=== PATIENT | male | born 1935 | race Caucasian/White ===

== ENCOUNTER → 2023-06-23 10:16 | Outpatient (REF) | payer OTHER, SELFPAY | LOC: RCS 10:16 | PROVIDERS: ATTENDING PHYSICIAN Internal Medicine Cardiovascular Disease; FAMILY PHYSICIAN Family Medicine | DX: I47.29 Other ventricular tachycardia (principal); R00.1 Bradycardia, unspecified | CPT/HCPCS: 93225; 93226 ==

== ENCOUNTER → 2024-07-15 08:16 | Outpatient (REF) | payer OTHER, SELFPAY | LOC: RAD 08:16 | PROVIDERS: ATTENDING PHYSICIAN Family Medicine | DX: M75.51 Bursitis of right shoulder (principal) | CPT/HCPCS: 73030 ==

== ENCOUNTER 2024-12-29 05:58 | Day surgery (SDC) | payer OTHER, SELFPAY ==
[2024-12-29] VITALS (20 sets, daily range): BP systolic 112–156; BP diastolic 61–94; BMI 31.3
--- NOTE | 2024-12-29 11:35 | W.PN.UPDATE ---
Update Note
Progress Note Update
Pt seen post DC PPM implant. Left ACW w/aquacel CDI, no ht/bleeding. Post CXR w/stable lead position, no pneumothorax. Post tele SR w/bursts ATach, intermittent A pacing. Activity limitations reviewed with pt and family members at bedside. Will
resume propranolol er 60mg daily and continue other meds as before. Incision check at [facility] in 1 week and follow with Dr. Thompson thereafter. Home later today if device site/tele remain stable.
--- NOTE | 2024-12-29 12:33 | PTCARENOTE ---
Isaias Washington, medtronic rep, at pt bedside speaking to pt and pt's .
[2024-12-29] MEDS: ANCEF 5 IV (13:53)
--- NOTE | 2024-12-29 15:27 | ITS.CL.PACE ---
Bottom Turning Lathe Turner - Pacemaker Implant
Pacemaker Implant
Procedure Report:
Date of Procedure: December 29, 2024.
Procedure: Pacemaker Implantation. Left upper extremity venogram.
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
Performing physician: Brayan Thompson MD, [facility].
Implants:
Pulse Generator: Medtronic; Model# W1DR01; Serial# [id number].
RA Lead: Med[employer]onic; Model# 5076-45cm; Serial# [id number].
RV Lead: Med[employer]onic; Model# 3830-69cm; Serial# [id number].
Technique: A time out was performed. A 10 mL upper extremity venogram demonstrated patent left axillary, cephalic, and subclavian veins. The procedure site was identified. The patient was anesthetized by the anesthesia service. Preoperative
cefazolin was administered. The patient was prepped and draped in the usual fashion. Local anesthetic was applied to the left prepectoral subcutaneous tissue. A 3 inch incision was made along the left deltopectoral groove. Dissection was carried to
the fascia. The left cephalic vein was easily isolated and proximal and distal control with 2-0 Vicryl suture. Using a micropuncture needle to access the cephalic vein under direct visualization a wire was advanced into the central circulation. A 7
Fr introducer was placed to allow two 0.35 J wires to be advanced. The leads were introduced with hemostatic peel away introducer sheaths. The RV lead was placed using utilizing the [employer] His delivery catheter ([id number]) that was advanced to the
left bundle area as confirmed by fluoroscopy in the LUXEMBOURGER and MILLER projections. The lead tip was advanced. PVC morphology was reviewed. When a satisfactory location was identified (W pattern observed) the lead was screwed into position with serial
turns. Septal engagement was confirmed with gentle torque applied to the guide sheath. After each series of turns (2-3) unipolar sensed morphology and impedance, and paced morphology of V1 was analyzed. The lead was further advanced until
satisfactory morphology and electrical characteristics were confirmed. The RV lead was placed in the second location evaluated. The long guiding sheath was cut and removed from the RV without change in lead position, impedance, sensing, or capture.
The ventricular lead was secured to the pectoralis muscle and fascia with two 0-silk sutures. The atrial lead was placed in the right atrial appendage. 8 volt pacing from each lead did not capture the diaphragm. The atrial leads was secured to the
pectoralis muscle and fascia. A subcutaneous pocket was created with Bovie cautery. Hemostasis was excellent. The leads were appropriately attached to the device. The pocket was irrigated with antibiotic solution. The device and leads were placed in
the pocket. The incision was closed in three layers with absorbable suture. Steri-strips and a silver impregnated dressing were placed. Estimated blood loss was 25 ml. There were no complications. Fluoroscopy time 3.8 minutes and DAP 2.63 GyCM2.
The device was then interrogated after skin closure.
Lead Analysis:
RA lead: P: 1.6 mV; Threshold: 1.5 V @ 0.4 ms; Impedance: 513 ohms.
RV lead (bipolar): R: 17.4 mV; Threshold: 0.5 V @ 0.4 ms; Impedance: 665 ohms.
RV lead (unipolar): R: 20 mV; Threshold: 0.5 V @ 0.4 ms; Impedance: 456 ohms.
Paced QRS characteristics: V1 has Qr morphology and measures 120 ms in duration, LVAT (stim to peak V5/V6) is 79 ms, and R peak V1 to R peak V6 is 37 ms.
The RV lead has similar morphology at high and low output in both unipolar and bipolar mode.
Final Programming: MVP (AAIR to DDDR) 60-130 bpm.
Conclusion: Uncomplicated Medtronic pacemaker implant. Successful conduction system pacing with left bundle branch block capture. The pacing system is MRI conditional.
Recommendation: Routine post pacemaker care.
cc: Shine Mccain MD.
== END 2024-12-29 14:20 | disposition home or self-care (01) ==
LOC: CATH 05:58
PROVIDERS: ATTENDING PHYSICIAN Internal Medicine Cardiovascular Disease; FAMILY PHYSICIAN Family Medicine
DX: I49.5 Sick sinus syndrome (principal); I34.0 Nonrheumatic mitral (valve) insufficiency; I25.10 Atherosclerotic heart disease of native coronary artery without angina pectoris; I44.0 Atrioventricular block, first degree; I45.2 Bifascicular block; I47.19 Other supraventricular tachycardia
CPT/HCPCS: 33208; 71045; 93005; C1769; C1785; C1887; C1898; Q9967